=== PATIENT | male | born 1995 | race Caucasian/White ===

== ENCOUNTER 2025-07-19 05:13 | Emergency (ER) | payer BC ==
[~2025-07-19] VITALS: Ht 182.9 cm; Wt 90.0 kg
--- NOTE | 2025-07-19 05:45 | ELECTROCARDIOGRAPH REPORT ---
[facility] Test Date: 2025-07-19 Test Time: 05:42:54 Pat Name: SHIRA MEYER Department: [facility] Patient ID: [id number] Room: Gender: M [employer] Tender: : 1995 Requested By: LUCERO MA Order Number: [id number] Reading MD: Measurements Intervals Cecil Rate: 111 P: 41 IL: 142 QRS: 14 QRSD: 61 T: 34 QT: 351 QTc: 477 Interpretive Statements Sinus tachycardia Probable left atrial enlargement Anteroseptal infarct, age indeterminate Minimal ST elevation, inferior leads Artifact in lead(s) V2 and baseline wander in lead(s) V2 Please click the below link to view image of tracing.
[2025-07-19] MEDS ORDERED: OMEP20TA43 PO (05:51)
[2025-07-19] MEDS ORDERED: TAMS-55 PO (05:51)
[2025-07-19] MEDS ORDERED: CITA-178 PO (05:51)
--- NOTE | 2025-07-19 06:03 | RADIOLOGY REPORT ---
CHEST RADIOGRAPH Indication: SEPSIS Technique: Single frontal view of the chest was obtained Comparison: None IMPRESSION: Heart appears normal in size. The lungs appear clear without focal airspace opacity, effusion, or pneumothorax
[2025-07-19 06:07] LABS: MEAN PLATELET VOLUME 8.7 FL (7.4-10.4); RED CELL DISTRIBUTION WIDTH 13.3 % (11.5-14.5)
[2025-07-19 06:18] LABS: CREATININE 0.88 MG/DL (0.60-1.10); TOTAL CARBON DIOXIDE 28.2 MMOL/L (24-32); eCRCL 132 ML/MIN; eGFR > 90 ML/MIN
--- NOTE | 2025-07-19 06:29 | Physician Documentation ---
History of Present Illness General Chief Complaint: Weakness Stated Complaint: WEAKNESS,SHAKES,DIZZINESS Time Seen by MD: 06:18 History of Present Illness Initial Comments The patient is a 30-year-old male with a history of GERD, depression and BPH who began feeling feverish along with a sore throat over the past 12-24 hours. Medication Reconciliation Allergies: Coded Allergies: No Known Allergies (Unverified , 07/19/25) Scheduled Citalopram Hydrobromide* (Celexa*), 1 TAB PO DAILY, (Reported) Tamsulosin Hcl* (Flomax*), 1 CAP PO DAILY, (Reported) Miscellaneous Medications Omeprazole (Omeprazole), 20 MG PO, (Reported) Review of Systems ROS Constitutional: Chills and fever. HEENT: Sore throat. Respiratory: Mild nonproductive cough. Cardiovascular: Denies chest pain, pain while walking (claudication), edema or palpitations. Gastrointestinal: Denies abdominal pain, blood in stool, constipation, diarrhea, heartburn, loss of appetite, nausea or vomiting. Genitourinary: Denies painful urination (dysuria), excessive amount of urine (polyuria) or urinary frequency. Metabolic/Endocrine: Denies cold intolerance, heat intolerance, excessive thirst (polydipsia) or excessive hunger (polyphagia). Neurological: Denies dizziness, extremity numbness, extremity weakness, headaches, seizures or tremors. Psychiatric: Denies anxiety or depression. Integumentary: Denies breast discharge, breast lump, hives, mole change(s), rash or skin lesion. Musculoskeletal: Denies back pain, joint pain, joint swelling or neck pain. Hematologic: Denies easily bleeding, easily bruises, lymphedema or issues with blood clots. Immunologic: Denies food allergies or seasonal allergies. Physical Exam Physical Exam Vital Signs: Temperature: 101.0, Source: Oral, Heart Rate: 99, Respiratory Rate: 15, BP: 132/88, Pulse Oximetry: 99, Weight: 90.000 Oxygen Flow Rate: 0 Physical Exam Physical Exam Vitals and nursing note reviewed. Constitutional: General: Patient is awake, alert, oriented x 4 in no acute distress and well appearing. Speech is clear and lucid. Appearance: Normal appearance. Patient is not ill-appearing, toxic-appearing or diaphoretic. HENT: Head: Normocephalic and atraumatic. Mouth/Throat: Mouth: Mucous membranes are moist. Pharynx: Pharyngeal erythema. Eyes: General: No scleral icterus. Extraocular Movements: Extraocular movements intact. Pupils: Pupils are equal, round, and reactive to light. Neck: Supple, no Kernig or Brudzinski sign. Cardiovascular: Rate and Rhythm: Normal rate and regular rhythm. Heart sounds: No murmur heard. Pulmonary: Effort: No respiratory distress. Breath sounds: No wheezing, rhonchi or rales. Abdominal: General: There is no distension. Palpations: There is no fluid wave, hepatomegaly or mass. Tenderness: There is no abdominal tenderness. There is no guarding. Musculoskeletal: General: No swelling or deformity. Skin: Coloration: Skin is not jaundiced. Findings: No erythema or rash. Neurological: Mental Status: Patient is alert. Progress Results/Orders Results/Orders Orders - JARVIS BO MD Covid19 Binax Poc Result Entry (07/19/25 06:20) Cult Throat + R/O Beta Strep (07/19/25 07:01) Completed Orders - JARVIS BO MD Strep A Rapid (07/19/25 06:25) Acetaminophen 325mg Tablet (Tylenol Tabl (07/19/25 06:45) Medications Received in ER Medications (Trade) Dose Ordered Sig/Hailey Route PRN Reason Start Time Stop Time Status Last Admin Dose Admin (Tylenol tablet) 975 mg ONCE ONCE PO 07/19/25 06:45 07/19/25 06:46 DC 07/19/25 06:50 975 MG Vital Signs 07/19/25 07/19/25 07/19/25 05:21 05:50 06:37 Temp 99.9 101.0 Pulse 127 99 Resp 24 15 B/P (MAP) 128/86 132/88 (103) Pulse Ox 98 99 O2 Flow Rate 0 0 Laboratory Tests Test 07/19/25 05:22 07/19/25 05:49 07/19/25 06:26 Glucometer 119 H White Blood Count 5.8 Red Blood Count 5.12 Hemoglobin 15.3 Hematocrit 44.4 Mean Corpuscular Volume 86.7 Mean Corpuscular Hemoglobin 29.9 Mean Corpuscular Hemoglobin Concent 34.4 Red Cell Distribution Width 13.3 Platelet Count 209 Mean Platelet Volume 8.7 Neutrophils (%) (Auto) 77.4 H Lymphocytes (%) (Auto) 8.7 L Monocytes (%) (Auto) 13.2 H Eosinophils (%) (Auto) 0.2 Basophils (%) (Auto) 0.5 Neutrophils # (Auto) 4.5 Lymphocytes # (Auto) 0.5 L Monocytes # (Auto) 0.8 Eosinophils # (Auto) 0.0 Basophils # (Auto) 0.0 CBC Comment Sodium Level 139 Potassium Level 3.8 Chloride Level 102 Carbon Dioxide Level 28.2 Anion Gap 9 Blood Urea Nitrogen 10 Creatinine 0.88 Estimated GFR/1.73 m2 > 90 BUN/Creatinine Ratio 11.4 Glucose Level 103 Lactic Acid Level 1.3 Calcium Level 9.2 Magnesium Level 2.1 Albumin 4.0 Procalcitonin < 0.05 Chemistry Comments SARS-CoV-2 Antigen (Rapid) Positive A Group A Streptococcus Rapid Negative Medical Decision Making Findings EKG medically necessary in the evaluation of sepsis and interpreted by me at the time of patient evaluation. Rhythm is sinus tachycardia with a rate of 111. Impression: Sinus tachycardia. ECG reading does not show any acute signs of obvious ischemia. No evidence of A- V block. No short ID, delta waves, or wide QRS concerning for [id number]. No long QT events on my read. I do not see evidence of Brugada with ST elevations in V1 through V3. No epsilon wave noted. No low voltage suggestive of pericardial effusion. No right ventricular strain pattern. CHEST X-RAY FINDINGS: X-rays were interpreted by me. The lungs are clear. The cardiac and mediastinal contours are within normal limits. There is no evidence of pulmonary vascular congestion, pleural effusions or pneumothorax. The bony thorax appears grossly intact. IMPRESSION: Normal radiographic examination of the chest with no acute cardiopulmonary abnormality. The patient is positive for COVID. His chest x-rays reported negative by Radiology. Oxygen saturations are satisfactory. I will discharge him with a work excuse and symptomatic treatment. Departure Disposition: 01 HOME / SELF CARE / HOMELESS Impression: Primary Impression: COVID Condition: Stable Additional Instructions: You have been evaluated for fever and other symptoms. You have COVID. You should isolate yourself for five days and you may return to work after that. A work excuse has been provided. Please take acetaminophen and/or ibuprofen, as needed for fever, aches and pains. Follow-up with your PCP or return here for worsening symptoms or new/unusual symptoms. Referrals: NO PRIMARY CARE PROVIDER (PCP) Education Educated: Patient Educated regarding: diagnosis, treatment, prognosis, need for follow up Signature Scribe Signature: . Attestation: . JARVIS BO MD Jul 19, 2025 06:29
[2025-07-19 07:01] LABS: STREP A SCREEN NEGATIVE (Neg)
[2025-07-19 07:38] VITALS: BP 127/86; PULSE 101; RESP 20; TEMP 99; O2SAT 100
== END 2025-07-19 07:40 | disposition home or self-care (01) ==
LOC: ER 05:14
DX: U07.1 COVID-19 (principal); Z79.899 Other long term (current) drug therapy
CPT/HCPCS: 36415; 71045; 80048; 82948; 83605; 83735; 84145; 85025; 87040; 87081; 87811; 87880; 93005; 99285; J7030